=== PATIENT | female | born 1995 | race Caucasian/White ===

== ENCOUNTER 2023-10-05 04:09 | Emergency (ER) | payer OTHER ==
[~2023-10-05] VITALS: Ht 172.7 cm; Wt 55.5 kg
[2023-10-05 04:13] VITALS: TEMP 97.8
[2023-10-05] MEDS ORDERED: Ketorolac 15 MG/ML VIAL IV ONE (04:30)
[2023-10-05] MEDS ORDERED: NS 1,000 ML IV ONE (04:30)
[2023-10-05] MEDS ORDERED: Ondansetron 4 MG/2 ML VIAL IV ONE (04:30)
[2023-10-05 04:32] LABS: COLLECTION METHOD CLEAN CATCH
[2023-10-05 04:38] LABS: BASO # 0.1 K/mm3 (0.0-0.2); BASO % 1.3 % (0.0-2.0); EOS # 0.1 K/mm3 (0.0-0.7); EOS % 1.6 % (0.0-4.0); GRAN # 3.4 K/mm3 (1.4-6.5); GRAN % 49.9 % (42.2-75.2); HEMATOCRIT 44.8 % (37.0-47.0); HEMOGLOBIN 14.8 g/dl (12.5-16.0); LYMPH # 2.2 K/mm3 (1.2-3.4); LYMPH % 32.6 % (20.0-51.0); MEAN CELL VOLUME 93 fl (80.0-100.0); MEAN CORPUSCULAR HEMOGLOBIN 31 pg (27-31); MEAN CORPUSCULAR HGB CONC 33 g/dl (33.0-37.0); MEAN PLATELET VOLUME 9.3 fl (7.4-10.4); MONO % 14.3 % (1.7-9.3); PLATELET COUNT 283 K/mm3 (130-400); RED BLOOD COUNT 4.84 M/mm3 (4.10-5.30); REDCELL DISTRIBUTION WIDTH-CV 11.9 % (11.5-14.5)
[2023-10-05 04:56] LABS: URINE APPEARANCE Clear (CLEAR/HAZY); URINE COLOR YELLOW (YELLOW)
[2023-10-05] MEDS ORDERED: Iohexol 300 - 100 ML VIAL IV ONE (04:56)
[2023-10-05] MEDS ORDERED: NS 50 ML IV SCH (04:56)
[2023-10-05 04:57] LABS: URINE BLOOD Negative (NEGATIVE); URINE GLUCOSE Negative (NEGATIVE); URINE KETONE Negative (NEGATIVE); URINE NITRATE Negative (NEGATIVE); URINE PROTEIN(semi-quant) Negative (NEGATIVE); URINE UROBILINOGEN 0.2 E.U/dL (0.2-1.0)
[2023-10-05 04:59] LABS: ALBUMIN 4.5 g/dL (3.5-5.0); BILIRUBIN,TOTAL 0.4 mg/dL (0.2-1.2); CALCIUM 9.4 mg/dL (8.4-10.2); CREATININE, serum 0.76 mg/dL (0.57-1.11); POTASSIUM 3.5 mEq/L (3.5-4.5); TOTAL PROTEIN 7.4 g/dl (6.2-8.1)
[2023-10-05] MEDS ORDERED: Mag/Al Hydrox/Simeth Susp 30 ML CUP PO ONE (05:15)
[2023-10-05] MEDS ORDERED: LEVSIN 0.10.125 MG/T PO (05:26)
[2023-10-05] MEDS ORDERED: Hyoscyamine 0.125 MG Sublingual TAB SL ONE (05:30)
[2023-10-05 05:36] VITALS: BP 109/73; PULSE 80
[2023-10-06] MEDS ORDERED: CARAFATE 1GM1 G PO (03:30)
[2023-10-06] MEDS ORDERED: PRILOSEC 20MG20 MG PO (03:30)
== END 2023-10-05 05:39 | disposition home or self-care (01) ==
LOC: COL.ER 04:09
PROVIDERS: Emergency Medicine
DX: R10.13 Epigastric pain (principal)
CPT/HCPCS: J1885; J2405; J7030; Q9967

== ENCOUNTER 2023-10-06 02:40 | Emergency (ER) | payer OTHER ==
[~2023-10-06] VITALS: Ht 172.7 cm; Wt 55.5 kg
[~2023-10-06 02:40] MED LIST: LEVSIN 0.10.125 MG/T PO
[2023-10-06 02:45] VITALS: TEMP 97.8
[2023-10-06] MEDS ORDERED: Mag/Al Hydrox/Simeth Susp 30 ML CUP PO ONE (03:15)
[2023-10-06] MEDS ORDERED: PRILOSEC 20MG20 MG PO (03:30)
[2023-10-06] MEDS ORDERED: CARAFATE 1GM1 G PO (03:30)
[2023-10-06] MEDS ORDERED: Morphine 10 MG/ML VIAL IM ONE (03:45)
[2023-10-06 04:42] VITALS: BP 114/86; PULSE 65
== END 2023-10-06 04:42 | disposition home or self-care (01) ==
LOC: COL.ER 02:40
DX: K29.70 Gastritis, unspecified, without bleeding (principal); T39.395A Adverse effect of other nonsteroidal anti-inflammatory drugs [NSAID], initial encounter
CPT/HCPCS: J2270

== ENCOUNTER 2023-10-11 05:40 | Emergency (ER) | payer OTHER ==
[~2023-10-11] VITALS: Ht 172.7 cm; Wt 55.5 kg
[~2023-10-11 05:40] MED LIST changes: +CARAFATE 1GM1 G PO; +PRILOSEC 20MG20 MG PO
[2023-10-11 06:03] VITALS: TEMP 98.4
[2023-10-11] MEDS ORDERED: NS 1,000 ML IV ONE (06:45)
[2023-10-11] MEDS ORDERED: Mag/Al Hydrox/Simeth Susp 30 ML CUP PO ONE ×2 (06:45→07:00)
[2023-10-11] MEDS ORDERED: Pantoprazole 80 MG in NS 100 ML IV ONE (06:45)
[2023-10-11 07:25] LABS: BASO # 0.1 K/mm3 (0.0-0.2); BASO % 0.9 % (0.0-2.0); EOS # 0.1 K/mm3 (0.0-0.7); EOS % 2.5 % (0.0-4.0); GRAN % 54.2 % (42.2-75.2); HEMATOCRIT 40.9 % (37.0-47.0); HEMOGLOBIN 14.1 g/dl (12.5-16.0); LYMPH # 1.5 K/mm3 (1.2-3.4); MEAN CELL VOLUME 89 fl (80.0-100.0); MEAN CORPUSCULAR HEMOGLOBIN 31 pg (27-31); MEAN CORPUSCULAR HGB CONC 35 g/dl (33.0-37.0); MEAN PLATELET VOLUME 9.9 fl (7.4-10.4); MONO # 0.8 K/mm3 (0.1-0.6); MONO % 14.2 % (1.7-9.3); PLATELET COUNT 219 K/mm3 (130-400); RED BLOOD COUNT 4.58 M/mm3 (4.10-5.30); REDCELL DISTRIBUTION WIDTH-CV 11.9 % (11.5-14.5)
[2023-10-11 07:45] LABS: ALANINE AMINOTRANSFERASE 13 U/L (0-55); ALBUMIN 4.2 g/dL (3.5-5.0); ALKALINE PHOSPHATASE 48 U/L (40-150); ANION GAP 11 mmol/L (7-16); AST,SGOT 26 U/L (5-34); BILIRUBIN,TOTAL 0.4 mg/dL (0.2-1.2); BLOOD UREA NITROGEN 11 mg/dL (7-19); CALCIUM 9.2 mg/dL (8.4-10.2); CHLORIDE 104 mEq/L (98-107); CREATININE, serum 0.72 mg/dL (0.57-1.11); GLUCOSE 79 mg/dL (70-99); LIPASE 38 U/L (8-78); SODIUM 137 mEq/L (136-145); TOTAL PROTEIN 7.2 g/dl (6.2-8.1)
[2023-10-11 07:49] LABS: POTASSIUM 4.8 mEq/L (3.5-4.5)
[2023-10-11 07:53] LABS: TROPONIN-I < 0.010 ng/mL (0.00-0.033)
[2023-10-11] MEDS ORDERED: PEPCID 20MG TAB20 MG PO (08:00)
[2023-10-11 08:44] VITALS: BP 109/85; PULSE 70
== END 2023-10-11 08:48 | disposition home or self-care (01) ==
LOC: COL.ER 05:40
PROVIDERS: Emergency Medicine
DX: R10.13 Epigastric pain (principal)
CPT/HCPCS: J2470; J7030

== ENCOUNTER 2023-10-16 20:55 | Emergency (ER) | payer OTHER ==
[~2023-10-16] VITALS: Ht 172.7 cm; Wt 54.5 kg
[~2023-10-16 20:55] MED LIST changes: +PEPCID 20MG TAB20 MG PO
[2023-10-16 21:03] VITALS: TEMP 98.6
[2023-10-17 01:16] LABS: BASO # 0.1 K/mm3 (0.0-0.2); BASO % 1.1 % (0.0-2.0); EOS # 0.1 K/mm3 (0.0-0.7); EOS % 1.8 % (0.0-4.0); GRAN # 3.5 K/mm3 (1.4-6.5); GRAN % 49.6 % (42.2-75.2); HEMATOCRIT 40.8 % (37.0-47.0); LYMPH # 2.5 K/mm3 (1.2-3.4); LYMPH % 35.1 % (20.0-51.0); MEAN CELL VOLUME 90 fl (80.0-100.0); MEAN CORPUSCULAR HEMOGLOBIN 31 pg (27-31); MEAN CORPUSCULAR HGB CONC 34 g/dl (33.0-37.0); MEAN PLATELET VOLUME 9.6 fl (7.4-10.4); MONO # 0.9 K/mm3 (0.1-0.6); MONO % 12.1 % (1.7-9.3); PLATELET COUNT 241 K/mm3 (130-400); RED BLOOD COUNT 4.52 M/mm3 (4.10-5.30); REDCELL DISTRIBUTION WIDTH-CV 11.9 % (11.5-14.5)
[2023-10-17 01:29] LABS: ALBUMIN 4.3 g/dL (3.5-5.0); BILIRUBIN,TOTAL 0.4 mg/dL (0.2-1.2); CALCIUM 10.4 mg/dL (8.4-10.2); CREATININE, serum 0.81 mg/dL (0.57-1.11); POTASSIUM 3.5 mEq/L (3.5-4.5); TOTAL PROTEIN 6.9 g/dl (6.2-8.1)
[2023-10-17] MEDS ORDERED: NS 1,000 ML IV ONE (01:30)
[2023-10-17] MEDS ORDERED: droPERidol 2.5 MG/ML 2 ML VIAL IV ONE (01:30)
[2023-10-17] MEDS ORDERED: PROTONIX20 MG PO (01:32)
[2023-10-17] MEDS ORDERED: Pantoprazole 40 MG in NS 10 ML IV ONE (02:00)
[2023-10-17] MEDS ORDERED: Sucralfate Susp 1 GM/10 ML UD PO ONE (03:00)
[2023-10-17 03:18] VITALS: BP 117/90; PULSE 80
== END 2023-10-17 03:18 | disposition home or self-care (01) ==
LOC: COL.ER 20:55
PROVIDERS: Physician Assistant
DX: R10.13 Epigastric pain (principal)
CPT/HCPCS: J1790; J2470; J7030

== ENCOUNTER 2023-12-12 07:05 | Day surgery (SDC) | payer OTHER ==
[~2023-12-12] VITALS: Ht 172.7 cm; Wt 52.4 kg
[~2023-12-12 07:05] MED LIST changes: +LR 1,000 ML IV SCH; +Ondansetron 4 MG/2 ML VIAL IV PRN; +PROTONIX20 MG PO
[2023-12-12 07:14] VITALS: BP 104/67; PULSE 75; TEMP 98.3
[2023-12-12] MEDS ORDERED: NURTEC ODT75 MG PO (07:19)
[2023-12-12] MEDS ORDERED: INDERAL 10MG10 MG PO (07:20)
[2023-12-12] MEDS ORDERED: CYMBALTA 30MG30 MG PO (07:20)
[2023-12-12] MEDS ORDERED: CYMBALTA 20MG20 MG PO (07:20)
--- NOTE | 2023-12-12 07:44 | NUR ---
The patient ambulated back to [facility] independently using a steady gait and appeared to tolerate the activity well. Vital signs obtained. Consent signed. 20G IV started in right wrist with one stick, LR infusing without difficulty. Warm blanket provided. Mother brought back to be at her bedside. Denies any further needs at this time.
[2023-12-12] MEDS ORDERED: Lidocaine PF 2% (20 MG/ML) 5 ML VIAL ONE (08:32)
[2023-12-12 09:10] VITALS: BP 112/84; PULSE 76; TEMP 97.6
--- NOTE | 2023-12-12 09:10 | NUR ---
PATIENT AMBULATED TO CHAIR WITH STEADY GAIT, ASSIST OF 2. ALERT AND AWAKE. DENIES PAIN, NAUSEA AND SHORTNESS OF BREATH. BREATHING REGULAR AND UNLABORED ON ROOM AIR. SKIN WARM AND DRY. IV IN PLACE. NURSE HANDOFF COMPLETED IN ROOM. SEE CHART FOR VITAL SIGNS. PATIENT HAD WATER AND A MUFFIN. BOTH FOOD AND DRINK TOLERATED WELL, NO DYSPHAGIA. CALL LIGHT IN REACH.
[2023-12-12 09:25] VITALS: BP 102/76; PULSE 68
[2023-12-12 09:30] VITALS: BP 104/78; PULSE 70
--- NOTE | 2023-12-12 09:35 | NUR ---
0910: MET WITH PATIENT IN ROOM TO DISCUSS PROCEDURE. 0923: DISCHARGE TEACHING COMPLETED WITH PRINTED EDUCATION AND INSTRUCTIONS SENT HOME WITH PATIENT. PATIENT VERBALIZED UNDERSTANDING OF TEACHING. 0927: IV REMOVED. GAUZE AND COBAN PLACED OVER SITE. 0935: PATIENT DISCHARGED HOME WITH [facility].
[2023-12-12 09:44] VITALS: BP 115/71; PULSE 85
== END 2023-12-12 09:35 | disposition home or self-care (01) ==
LOC: SDCO 07:05
DX: K29.50 Unspecified chronic gastritis without bleeding (principal); R63.4 Abnormal weight loss; Z79.899 Other long term (current) drug therapy; Z79.1 Long term (current) use of non-steroidal anti-inflammatories (NSAID)
CPT/HCPCS: J2704; J7120